=== PATIENT | female | born 1985 | race Caucasian/White ===

== ENCOUNTER 2024-02-13 08:00 | Inpatient (IN) | payer BC ==
[2024-03-08] MEDS ORDERED: ceFAZolin 2 GM in Sodium Chloride 0.9% 50 ML IV ONE (10:27)
[2024-03-08] MEDS ORDERED: Oxytocin/Lactated Ringers 30 UNIT/500 ML BAG IV SCH (10:30)
[2024-03-08 10:51] LABS: BASOPHILS ABSOLUTE AUTO 0.1 K/mm3 (0.0-0.2); BASOPHILS PERCENT AUTO 0.8 % (0.0-1.0); EOSINOPHILS ABSOLUTE AUTO 0.1 K/mm3 (0.0-0.4); EOSINOPHILS PERCENT AUTO 0.5 % (0.0-6.0); HEMATOCRIT 34.4 % (37.0-47.0); HEMOGLOBIN 10.4 gm/dl (12.0-16.0); IMMATURE GRAN ABSOLUTE AUTO 0.14 K/mm3 (0.00-0.05); IMMATURE GRAN PERCENT AUTO 1.1 % (0.0-0.4); LYMPHOCYTES ABSOLUTE AUTO 2.6 K/mm3 (1.0-4.8); LYMPHOCYTES PERCENT AUTO 20.6 % (24.0-44.0); MEAN CORPUSCULAR HEMOGLOBIN 24.8 pg (28.0-32.0); MEAN CORPUSCULAR HGB CONC 30.2 g/dl (32.0-36.0); MEAN CORPUSCULAR VOLUME 81.9 fl (83.0-99.0); MEAN PLATELET VOLUME 9.5 fl (9.4-12.3); MONOCYTES ABSOLUTE AUTO 1.3 K/mm3 (0.0-0.8); MONOCYTES PERCENT AUTO 10.3 % (0.0-8.0); NEUTROPHILS ABSOLUTE AUTO 8.6 K/mm3 (1.8-7.7); NEUTROPHILS PERCENT AUTO 66.7 % (41.0-71.0); NRBC ABSOLUTE 0.13 (0.00-0.02); PLATELET COUNT,PLT 249 K/mm3 (150-400); WHITE BLOOD CELL COUNT,WBC 12.83 K/mm3 (3.9-11.3)
[2024-03-08] MEDS ORDERED: Morphine PF 10 MG/10 ML SDV ONE (10:54)
[2024-03-08] MEDS ORDERED: Lactated Ringers 1,000 ML ONE ×2 (10:54→12:32)
[2024-03-08] MEDS ORDERED: Ondansetron 4 MG/2 ML SDV ONE (10:54)
[2024-03-08] MEDS ORDERED: Ketorolac 30 MG/ML SDV ONE (10:54)
[2024-03-08] MEDS ORDERED: Oxytocin 10 Units/1 ML SDV ONE ×2 (10:54→12:32)
[2024-03-08] MEDS: Azithromycin 500 MG in Sodium Chloride 0.9% 250 ML IV ONE (11:08)
[2024-03-08] MEDS: Citric Acid/Sodium Citrate Solution 30 ML Cup PO ONE (11:08)
[2024-03-08] MEDS: Metoclopramide 10 MG/2 ML SDV IVPUSH ONE (11:08)
[2024-03-08] MEDS: Lactated Ringers 1,000 ML IV SCH (11:09)
[2024-03-08] MEDS ORDERED: ceFAZolin 2 GM Vial ONE (12:10)
[2024-03-08] MEDS ORDERED: Phenylephrine 1% 10 MG/ML SDV ONE (12:10)
[2024-03-08] MEDS: Bupivacaine 0.5% 30 ML SDV ONE (12:22)
[2024-03-08] MEDS ORDERED: ePHEDrine 50 MG/ML SDV ONE (12:25)
[2024-03-08] MEDS ORDERED: diphenhydrAMINE 50 MG/ML SDV IVPUSH PRN ×2 (13:00→13:56)
[2024-03-08] MEDS ORDERED: Ondansetron 4 MG/2 ML SDV IVPUSH PRN (13:00)
[2024-03-08] MEDS ORDERED: fentaNYL 100 MCG/2 ML SDV IVPUSH PRN (13:00)
[2024-03-08] MEDS ORDERED: Acetaminophen/oxyCODONE 325-5 MG Tab PO PRN ×2 (13:56)
[2024-03-08] MEDS ORDERED: Naloxone 0.4 MG/ML SDV IVPUSH PRN (13:56)
[2024-03-08] MEDS ORDERED: ePHEDrine 50 MG/ML SDV IVPUSH PRN (13:56)
[2024-03-08] MEDS: Dextrose 5%-Lactated Ringers 1,000 ML IV SCH (14:49)
[2024-03-08] MEDS: Ketorolac 30 MG/ML SDV IVPUSH SCH (18:04)
[2024-03-08] MEDS: Lactated Ringers 1,000 ML IV ONE (20:51)
[2024-03-09 05:46] LABS: BASOPHILS ABSOLUTE AUTO 0.1 K/mm3 (0.0-0.2); BASOPHILS PERCENT AUTO 0.4 % (0.0-1.0); EOSINOPHILS ABSOLUTE AUTO 0.1 K/mm3 (0.0-0.4); EOSINOPHILS PERCENT AUTO 1.1 % (0.0-6.0); HEMATOCRIT 25.3 % (37.0-47.0); HEMOGLOBIN 7.7 gm/dl (12.0-16.0); IMMATURE GRAN ABSOLUTE AUTO 0.09 K/mm3 (0.00-0.05); IMMATURE GRAN PERCENT AUTO 0.8 % (0.0-0.4); LYMPHOCYTES ABSOLUTE AUTO 2.5 K/mm3 (1.0-4.8); LYMPHOCYTES PERCENT AUTO 21.8 % (24.0-44.0); MEAN CORPUSCULAR HEMOGLOBIN 25.2 pg (28.0-32.0); MEAN CORPUSCULAR HGB CONC 30.4 g/dl (32.0-36.0); MEAN CORPUSCULAR VOLUME 82.7 fl (83.0-99.0); MEAN PLATELET VOLUME 9.6 fl (9.4-12.3); MONOCYTES ABSOLUTE AUTO 1.2 K/mm3 (0.0-0.8); MONOCYTES PERCENT AUTO 10.6 % (0.0-8.0); NEUTROPHILS ABSOLUTE AUTO 7.4 K/mm3 (1.8-7.7); NEUTROPHILS PERCENT AUTO 65.3 % (41.0-71.0); NRBC ABSOLUTE 0.03 (0.00-0.02); NRBC PERCENT 0.3 % (0.0-0.2); PLATELET COUNT,PLT 214 K/mm3 (150-400); RED BLOOD CELL COUNT 3.06 M/mm3 (4.10-5.30); WHITE BLOOD CELL COUNT,WBC 11.33 K/mm3 (3.9-11.3)
[2024-03-09] MEDS: Ibuprofen 600 MG Tab PO SCH (13:40)
== END 2024-03-09 15:30 | disposition home or self-care (01) | DRG 540 ==
LOC: JD.OB 03-08 10:44 → MERGE 03-08 10:44
PROVIDERS: ADMIT Obstetrics & Gynecology; ATTEND Obstetrics & Gynecology
PROC: 10D00Z1 Extraction of Products of Conception, Low, Open Approach (ICD-10-PCS; principal; 2024-03-08 12:00)
DX: O36.8130 Decreased fetal movements, third trimester, not applicable or unspecified (principal); O34.211 Maternal care for low transverse scar from previous cesarean delivery; Z37.0 Single live birth; Z3A.38 38 weeks gestation of pregnancy
CPT/HCPCS: 01961; 36415; 59025; 85025; 86592; 86850; 86900; 86901; 99140; A9270-GY; J0456; J0665; J0690; J1885; J2274; J2371; J2405; J2590; J2765; J3490; J7050; J7120; J7121